=== PATIENT | female | born 1990 | race Caucasian/White ===

== ENCOUNTER 2019-07-22 05:12 | Inpatient (IN) ==
--- NOTE | 2019-07-22 05:26 | Emergency Department Note ---
History of Present Illness General Chief complaint: Illness Stated complaint: PNEUMONIA DIAGNOSED BY URGENT CARE History of Present Illness Maximum Pain Intensity: 3 This 29-year-old presents to the ER complaining of fever, chest congestion and body aches Location: Chest Quality: Feverish Severity: Moderate Duration: 3 days Timing: Started 3 days ago Context: Symptoms persisted and patient came in Modifying factors: better with Tylenol Motrin; worse with activity Patient went to urgent care and was given doxycycline for possible pneumonia. No x-ray was done. Patient denies abdominal pain, headache, neck stiffness, sore throat, earache. She does have some chest congestion and cough. Patient states she has chest discomfort with the cough. No exertional chest pain. No travel. No sick contacts. Home Medications Home Medications Medication Instructions Recorded Confirmed Type Control Pills 1 tab PO DAILY 07/22/19 07/22/19 History doxycycline hyclate 100 mg PO BID 07/22/19 07/22/19 History Allergies Allergy/AdvReac Type Severity Reaction Status Date / Time Cephalosporins Allergy Intermediate throat and Verified 07/22/19 05:46 face swelling azithromycin Allergy Mild Rash Verified 07/22/19 05:46 Past Med/Surg History Medical History No significant past medical history (Chronic) Surgical History H/O knee surgery (Chronic) Family History Other No significant family history Social History Preferred Language: Arabic Communication Ability: Effective Beliefs That Will Affect Care: None Current Living Situation: Spouse Current Living Situation Comment: Other Information That Helps Us Care for You: No Feels Safe at Home: Yes Safety Concerns: Feels Safe At This Time Smoking Status: Never smoker Hx Alcohol Use: Yes (1 glass wine once a month) Hx Substance Use: No Review of Systems All systems reviewed & are unremarkable except as noted in HPI & below Physical Exam Vital Signs Vital Signs - 24 hr 07/22/19 05:16 07/22/19 06:23 07/22/19 06:57 Temperature 37.2 C Temperature Source Oral Sepsis Recent Fever Within 48 Hours Yes Sepsis New/Unexplained Change in Mental Status No Sepsis Action Taken by Nursing No Action Required Pulse Rate 97 H Pulse Rate [Apical] 92 H Respiratory Rate 18 20 18 Respiratory Effort / Characteristics Non-Labored Spontaneous Respiratory Depth Normal Respiratory Pattern Blood Pressure 122/85 Blood Pressure [Left Arm] 117/79 123/89 Blood Pressure Mean 97 Blood Pressure Mean [Left Arm] 91 100 Blood Pressure Position Sitting Pulse Oximetry 97 100 100 Oxygen Delivery Method Room Air Room Air Room Air 07/22/19 07:00 07/22/19 08:00 07/22/19 08:01 Temperature Temperature Source Sepsis Recent Fever Within 48 Hours Sepsis New/Unexplained Change in Mental Status Sepsis Action Taken by Nursing Pulse Rate 84 85 Pulse Rate [Apical] Respiratory Rate 19 15 Respiratory Effort / Characteristics Non-Labored Spontaneous Respiratory Depth Normal Respiratory Pattern Regular Blood Pressure 125/92 113/77 Blood Pressure [Left Arm] Blood Pressure Mean 103 89 Blood Pressure Mean [Left Arm] Blood Pressure Position Pulse Oximetry 95 95 Oxygen Delivery Method Room Air Room Air Room Air VITALS: Vitals are noted on the nurse's note and reviewed by myself. Vital signs stable. GENERAL: Pleasant female, in no acute distress, nondiaphoretic, well-developed well-nourished. SKIN: The skin was without rashes, erythema, edema, or bruising. There is no tenting of the skin. Capillary reflex less than 2 seconds. HEAD: Normocephalic atraumatic. EARS: External auditory canals clear, tympanic membranes pearly grvaes without erythema or effusion bilaterally. EYES: Pupils equal round and reactive to light and accommodation. Conjunctivae without injection, sclerae without icterus. Extraocular movements intact. NOSE: Patent, turbinates without inflammation or discharge. No sinus tenderness. MOUTH: Mucous membranes moist. Pharynx without erythema or exudate. Uvula midline. Airway patent. Tongue does not deviate. NECK: Supple without nuchal rigidity. No lymphadenopathy. No thyromegaly. Cervical spine is nontender. No JVD. HEART: Regular rate and rhythm without murmurs gallops or rubs. LUNGS: Clear to auscultation bilaterally without wheezes, rales or rhonchi. No retractions or accessory muscle use. ABDOMEN: Positive bowel sounds x 4. Normal tympanic percussion. Soft, nontender, without masses or organomegaly. Faulkner sign negative. No guarding or rebound tenderness. No CVA tenderness MUSCULOSKELETAL: No muscle atrophy, erythema, or edema noted. NEURO: Patient was alert and oriented to person place and time. Normal sensation to light and sharp touch. No focal neurological deficits. Course Administered Medications Acetaminophen (Tylenol) 650 mg PO Q4H PRN PRN Reason: Pain or Fever Stop: 08/21/19 09:22 Last Admin: 07/22/19 15:00 Dose: 650 mg Documented by: [id number] Admin: 07/22/19 09:33 Dose: 650 mg Documented by: [id number] Sodium Chloride (Nss 1000ml) 1,000 mls @ 125 mls/hr IV .Q8H DANNIELLE Stop: 07/23/19 09:29 Last Admin: 07/23/19 01:18 Dose: 125 mls/hr Documented by: [id number] Infusion: 07/23/19 01:18 Dose: 125 mls/hr Documented by: [id number] Admin: 07/22/19 17:53 Dose: 125 mls/hr Documented by: [id number] Infusion: 07/22/19 17:33 Dose: 125 mls/hr Documented by: [id number] Admin: 07/22/19 09:33 Dose: 125 mls/hr Documented by: [id number] Ibuprofen (Motrin) 800 mg PO TID PRN PRN Reason: pain/fever/headache Stop: 08/21/19 11:52 Last Admin: 07/22/19 20:05 Dose: 800 mg Documented by: [id number] Ioversol (Optiray 320 125ml) 86 ml IV ONCE PRN PRN Reason: Interaction Checking Stop: 07/26/19 17:47 Last Admin: 07/22/19 17:48 Dose: 86 ml Documented by: [id number] Discontinued Medications Al Hydrox/Mg Hydrox/Simethicone () Confirm Administered Dose 1 dose PO .STK-MED ONE Stop: 07/22/19 06:01 Last Admin: 07/22/19 06:03 Dose: 1 dose Documented by: [id number] Al Hydrox/Mg Hydrox/Simethicone () 1 dose PO ONE ONE Stop: 07/22/19 06:15 Last Admin: 07/22/19 06:15 Dose: Not Given Documented by: [id number] Sodium Chloride (Nss 1000ml) 1,000 mls @ 999 mls/hr IV .Q1H1M ONE Stop: 07/22/19 06:32 Last Infusion: 07/22/19 06:59 Dose: 0 mls/hr Documented by: [id number] Admin: 07/22/19 05:58 Dose: 999 mls/hr Documented by: [id number] Ketorolac Tromethamine (Toradol) 10 mg IV NOW STA Stop: 07/22/19 05:33 Last Admin: 07/22/19 05:58 Dose: 10 mg Documented by: [id number] Ondansetron HCl (Zofran) 4 mg IV NOW STA Stop: 07/22/19 08:55 Last Admin: 07/22/19 08:57 Dose: 4 mg Documented by: [id number] Potassium Chloride (Klor-Con M10) 40 meq PO NOW STA Stop: 07/22/19 06:35 Last Admin: 07/22/19 06:38 Dose: 40 meq Documented by: [id number] Potassium Chloride (Klor-Con M20) 40 meq PO Q6H DANNIELLE Stop: 07/22/19 14:16 Last Admin: 07/22/19 09:46 Dose: Not Given Documented by: [id number] Potassium Chloride (Klor-Con M20) 40 meq PO Q6H DANNIELLE Stop: 07/22/19 16:01 Last Admin: 07/22/19 16:10 Dose: 40 meq Documented by: [id number] Admin: 07/22/19 11:45 Dose: 40 meq Documented by: [id number] Medical Decision Making Medical Records Attestation: I reviewed the patient's medical records. Home Medications Current Medication List: was personally reviewed by me Laboratory Data Attestation: I reviewed the patient's lab results. Result diagrams: 07/22/19 05:33 07/22/19 05:33 Lab Results 07/22/19 07/22/19 07/22/19 Range/Units 05:29 05:32 05:33 WBC 4.01 L (4.8-10.8) K/uL RBC 4.09 L (4.2-5.4) M/uL Hgb 12.2 (12.0-16.0) g/dL Hct 34.9 L (37-47) % MCV 85.3 (80-100) fL MCH 29.8 (25-34) pg MCHC 35.0 (32-36) g/dL RDW Std Deviation 39.6 (36.4-46.3) fL RDW Coeff of [place] 12.6 (11.5-14.5) % Plt Count 112 L (130-400) K/uL MPV 11.8 H (7.4-10.4) fL Immature Gran % (Auto) 0.2 % Neut % (Auto) 57.0 % Lymph % (Auto) 35.9 % [place] % (Auto) 5.7 % Eos % (Auto) 0.0 % Baso % (Auto) 1.2 % Immature Gran # (Auto) 0.01 (0.00-0.02) K/uL Neut # (Auto) 2.28 (1.4-6.5) K/uL Lymph # (Auto) 1.44 (1.2-3.4) K/uL [place] # (Auto) 0.23 (0.11-0.59) K/uL Eos # (Auto) 0.00 (0-0.5) K/uL Baso # (Auto) 0.05 (0-0.2) K/uL Neutrophils % (Manual) 70.4 % Lymphocytes % (Manual) 13.0 % Reactive Lymphs % (Man) 14.8 % Monocytes % (Manual) 0.9 % Basophils % (Manual) 0.9 % Neutrophils # (Manual) 2.82 (1.4-6.5) K/uL Total Absolute Neuts 2.82 (1.4-6.5) K/uL Lymphocytes # (Manual) 0.52 L (1.2-3.4) K/uL Reactive Lymphs # 0.59 K/uL Total Abs Lymphocytes 1.11 L (1.2-3.4) K/uL Monocytes # (Manual) 0.04 L (0.11-0.59) K/uL Basophils # (Manual) 0.04 (0-0.2) K/uL RBC Morphology Unremarkable Sodium (136-145) mmol/L Potassium (3.5-5.1) mmol/L Chloride (98-107) mmol/L Carbon Dioxide (21-32) mmol/L Anion Gap (3-11) BUN (7-18) mg/dl Creatinine (0.6-1.2) mg/dl Est Cr Clr Drug Dosing ml/min Est GFR ( Amer) Est GFR (Non-Af Amer) BUN/Creatinine Ratio (10-20) Glucose (70-99) mg/dl Calcium (8.5-10.1) mg/dl Magnesium (1.8-2.4) mg/dl Total Bilirubin (0.2-1) mg/dl AST (15-37) U/L ALT (12-78) U/L Alkaline Phosphatase (45-117) U/L POC Troponin I (0-0.045) ng/ml Troponin I (0-0.045) ng/ml Total Protein (6.4-8.2) gm/dl Albumin (3.4-5.0) gm/dl Globulin (2.5-4.0) gm/dl Albumin/Globulin Ratio (0.9-2) Urine Color Urine Appearance (Clear) Urine pH (4.5-7.5) Ur Specific [place] (1.000-1.030) Urine Protein (Negative) Urine Glucose (UA) (Negative) Urine Ketones (Negative) Urine Blood (Negative) Urine Nitrite (Negative) Urine Bilirubin (Negative) Urine Urobilinogen (Negative) Ur Leukocyte Esterase (Negative) Urine RBC (0-4) /hpf Urine WBC (0-5) /hpf Ur Epithelial Cells (0-5) /lpf Amorphous Sediment (None Prsent) Urine Bacteria (Negative) Urine Mucus (None Prsent) POC Ur Test (NEG) Anaplasma Smear See Comment Monoscreen Negative (Negative) Influenza Type A Ag Neg for Influ A (Neg) Influenza Type B Ag Neg for Influ B (Neg) 07/22/19 07/22/19 07/22/19 Range/Units 05:33 05:33 06:11 WBC (4.8-10.8) K/uL RBC (4.2-5.4) M/uL Hgb (12.0-16.0) g/dL Hct (37-47) % MCV (80-100) fL MCH (25-34) pg MCHC (32-36) g/dL RDW Std Deviation (36.4-46.3) fL RDW Coeff of [place]ult[place] (11.5-14.5) % Plt Count (130-400) K/uL MPV (7.4-10.4) fL Immature Gran % (Auto) % Neut % (Auto) % Lymph % (Auto) % [place] % (Auto) % Eos % (Auto) % Baso % (Auto) % Immature Gran # (Auto) (0.00-0.02) K/uL Neut # (Auto) (1.4-6.5) K/uL Lymph # (Auto) (1.2-3.4) K/uL [place] # (Auto) (0.11-0.59) K/uL Eos # (Auto) (0-0.5) K/uL Baso # (Auto) (0-0.2) K/uL Neutrophils % (Manual) % Lymphocytes % (Manual) % Reactive Lymphs % (Man) % Monocytes % (Manual) % Basophils % (Manual) % Neutrophils # (Manual) (1.4-6.5) K/uL Total Absolute Neuts (1.4-6.5) K/uL Lymphocytes # (Manual) (1.2-3.4) K/uL Reactive Lymphs # K/uL Total Abs Lymphocytes (1.2-3.4) K/uL Monocytes # (Manual) (0.11-0.59) K/uL Basophils # (Manual) (0-0.2) K/uL RBC Morphology Sodium 139 (136-145) mmol/L Potassium 3.0 L (3.5-5.1) mmol/L Chloride 106 (98-107) mmol/L Carbon Dioxide 26 (21-32) mmol/L Anion Gap 7.0 (3-11) BUN 5 L (7-18) mg/dl Creatinine 0.70 (0.6-1.2) mg/dl Est Cr Clr Drug Dosing 103.3 ml/min Est GFR ( Amer) 133.8 Est GFR (Non-Af Amer) 115.5 BUN/Creatinine Ratio 7.0 L (10-20) Glucose 93 (70-99) mg/dl Calcium 8.4 L (8.5-10.1) mg/dl Magnesium 1.9 (1.8-2.4) mg/dl Total Bilirubin 0.6 (0.2-1) mg/dl AST 46 H (15-37) U/L ALT 40 (12-78) U/L Alkaline Phosphatase 112 (45-117) U/L POC Troponin I 0.06 H (0-0.045) ng/ml Troponin I 0.061 H* (0-0.045) ng/ml Total Protein 7.4 (6.4-8.2) gm/dl Albumin 3.2 L (3.4-5.0) gm/dl Globulin 4.2 H (2.5-4.0) gm/dl Albumin/Globulin Ratio 0.8 L (0.9-2) Urine Color Urine Appearance (Clear) Urine pH (4.5-7.5) Ur Specific [place] (1.000-1.030) Urine Protein (Negative) Urine Glucose (UA) (Negative) Urine Ketones (Negative) Urine Blood (Negative) Urine Nitrite (Negative) Urine Bilirubin (Negative) Urine Urobilinogen (Negative) Ur Leukocyte Esterase (Negative) Urine RBC (0-4) /hpf Urine WBC (0-5) /hpf Ur Epithelial Cells (0-5) /lpf Amorphous Sediment (None Prsent) Urine Bacteria (Negative) Urine Mucus (None Prsent) POC Ur Test (NEG) Anaplasma Smear Monoscreen (Negative) Influenza Type A Ag (Neg) Influenza Type B Ag (Neg) 07/22/19 07/22/19 Range/Units 06:46 06:46 WBC (4.8-10.8) K/uL RBC (4.2-5.4) M/uL Hgb (12.0-16.0) g/dL Hct (37-47) % MCV (80-100) fL MCH (25-34) pg MCHC (32-36) g/dL RDW Std Deviation (36.4-46.3) fL RDW Coeff of [place]ultana (11.5-14.5) % Plt Count (130-400) K/uL MPV (7.4-10.4) fL Immature Gran % (Auto) % Neut % (Auto) % Lymph % (Auto) % [place] % (Auto) % Eos % (Auto) % Baso % (Auto) % Immature Gran # (Auto) (0.00-0.02) K/uL Neut # (Auto) (1.4-6.5) K/uL Lymph # (Auto) (1.2-3.4) K/uL [place] # (Auto) (0.11-0.59) K/uL Eos # (Auto) (0-0.5) K/uL Baso # (Auto) (0-0.2) K/uL Neutrophils % (Manual) % Lymphocytes % (Manual) % Reactive Lymphs % (Man) % Monocytes % (Manual) % Basophils % (Manual) % Neutrophils # (Manual) (1.4-6.5) K/uL Total Absolute Neuts (1.4-6.5) K/uL Lymphocytes # (Manual) (1.2-3.4) K/uL Reactive Lymphs # K/uL Total Abs Lymphocytes (1.2-3.4) K/uL Monocytes # (Manual) (0.11-0.59) K/uL Basophils # (Manual) (0-0.2) K/uL RBC Morphology Sodium (136-145) mmol/L Potassium (3.5-5.1) mmol/L Chloride (98-107) mmol/L Carbon Dioxide (21-32) mmol/L Anion Gap (3-11) BUN (7-18) mg/dl Creatinine (0.6-1.2) mg/dl Est Cr Clr Drug Dosing ml/min Est GFR ( Amer) Est GFR (Non-Af Amer) BUN/Creatinine Ratio (10-20) Glucose (70-99) mg/dl Calcium (8.5-10.1) mg/dl Magnesium (1.8-2.4) mg/dl Total Bilirubin (0.2-1) mg/dl AST (15-37) U/L ALT (12-78) U/L Alkaline Phosphatase (45-117) U/L POC Troponin I (0-0.045) ng/ml Troponin I (0-0.045) ng/ml Total Protein (6.4-8.2) gm/dl Albumin (3.4-5.0) gm/dl Globulin (2.5-4.0) gm/dl Albumin/Globulin Ratio (0.9-2) Urine Color Dark Yellow Urine Appearance Clear (Clear) Urine pH 6.5 (4.5-7.5) Ur Specific [place] 1.021 (1.000-1.030) Urine Protein 1+ H (Negative) Urine Glucose (UA) Negative (Negative) Urine Ketones 1+ H (Negative) Urine Blood 3+ H (Negative) Urine Nitrite Negative (Negative) Urine Bilirubin Negative (Negative) Urine Urobilinogen Negative (Negative) Ur Leukocyte Esterase 1+ H (Negative) Urine RBC 0-4 (0-4) /hpf Urine WBC 0-5 (0-5) /hpf Ur Epithelial Cells >30 H (0-5) /lpf Amorphous Sediment Present A (None Prsent) Urine Bacteria Negative (Negative) Urine Mucus Present A (None Prsent) POC Ur Test NEG (NEG) Anaplasma Smear Monoscreen (Negative) Influenza Type A Ag (Neg) Influenza Type B Ag (Neg) Imaging Data Attestation: I personally reviewed and interpreted this imaging study as follows: MDM Narrative Prior records/ancillary studies reviewed. Triage Nursing notes reviewed. The patient's history was concerning for fever. Differential diagnosis: Etiologies such as viral syndrome, otitis, pharyngitis, pneumonia, influenza, meningitis, urinary tract infection, sepsis, bacteremia, as well as others were entertained. Physical examination: As above ER treatment provided: IV fluids, Toradol, GI cocktail On reassessment the patient felt better. Diagnostics interpreted by me: ECG: Normal sinus, normal intervals, no acute ST-T wave changes. Impression normal sinus rhythm interpreted by myself Ordered for chest pain I think arrhythmia is unlikely. EKG shows normal sinus rhythm with no interval abnormalities such as QT prolongation or WPW. There are no findings to suggest Brugada syndrome. Cardiac monitoring in the emergency department reveals no tachycardic or bradycardic dysrhythmia. Hypertrophic cardiomyopathy was considered but there are no clear historical elements pointing toward this. EKG is not suggestive. The QRS voltage is not extremely large and there are no suggestive Q waves. The labs revealed negative flu. Blood cultures pending. Elevated troponin. Hypokalemia this is replaced orally No leukocytosis Imaging studies: Chest x-ray with no acute consolidation, pneumothorax or free air per my interpretation Consultation: Medicine was consulted and I spoke to . Case was reviewed. The [facility] team will evaluate the patient. This appears to be consistent with flulike illness with a positive troponin. EKG was normal sinus. No signs of pericarditis on EKG. Patient had no pneumonia. She was neurovascularly and neurologically intact. No signs of meningitis. By the evaluation outlined above emergent etiologies such as otitis, pharyngitis, pneumonia, meningitis, urinary tract infection, sepsis, bacteremia, as well as others were deemed relatively unlikely. Patient felt much better after the GI cocktail. Most likely she has some esophageal irritation from the doxycycline. She was advised to stop this as there was no pneumonia The pt informed about the findings as listed above. All questions were answered and pleased with the treatment. The chart was completed utilizing [employer] Speech voice recognition software. Grammatical errors, random word insertions, pronoun errors, and incomplete sentences are an occassional consequence of this system due to software limitations, ambient noise, and hardware issues. Any formal questions or concerns about the content, text, or information contained within the body of this dictation should be directly addressed to the physician resident programs assistant for clarification. Impression & Plan Bronchitis, Elevated troponin, Acute hypokalemia Discharge Plan Visit Data *Final* Discharge Date/Time: 07/22/19 08:59 Chief Complaint: Illness Stated Complaint: PNEUMONIA DIAGNOSED BY URGENT CARE ED Provider: Mary [facility] Pratt ED Midlevel Provider: Carmen Downs Discharge Problem: Bronchitis, Elevated troponin, Acute hypokalemia Patient Disposition: Admitted As Inpatient Condition: Good Discharge Instructions Interventions: ED Discharge Assessment Last Done: 07/22/19 08:59
[2019-07-22] MEDS ORDERED: SODIUM CHLORIDE 0.9% 1000ML 1,000 ML IV ONE (05:32)
[2019-07-22] MEDS ORDERED: KETOROLAC TROMETHAMINE 15 MG/ML VIAL IV STA (05:32)
[2019-07-22] MEDS ORDERED: GI COCKTAIL ED USE PO ONE ×2 (06:00→06:14)
[2019-07-22 06:16] LABS: Basophils # (auto) 0.05 K/uL (0-0.2); Basophils % (auto) 1.2 %; Hematocrit (blood only) 34.9 % (37-47); Hemoglobin 12.2 g/dL (12.0-16.0); Immature Granulocytes # (auto) 0.01 K/uL (0.00-0.02); Immature Granulocytes % (auto) 0.2 %; Lymphocytes # (auto) 1.44 K/uL (1.2-3.4); Lymphocytes % (auto) 35.9 %; Mean Corpuscular Hemoglobin 29.8 pg (25-34); Mean Corpuscular Volume 85.3 fL (80-100); Mean Platelet Volume 11.8 fL (7.4-10.4); Monocytes # (auto) 0.23 K/uL (0.11-0.59); Monocytes % (auto) 5.7 %; Neutrophils # (auto) 2.28 K/uL (1.4-6.5); Platelet Count 112 K/uL (130-400); RDW Coefficient of Variation 12.6 % (11.5-14.5); RDW Standard Deviation 39.6 fL (36.4-46.3); Red Blood Count 4.09 M/uL (4.2-5.4); White Blood Count 4.01 K/uL (4.8-10.8)
[2019-07-22 06:33] LABS: Albumin Level 3.2 gm/dl (3.4-5.0); Calcium 8.4 mg/dl (8.5-10.1); Creatinine Clr Calc Pharmacy 103.3 ml/min; Est GFR (African American) 133.8; Est GFR (Non-African American) 115.5
[2019-07-22] MEDS ORDERED: POTASSIUM CHLORIDE 10 MEQ TABCR PO STA (06:34)
[2019-07-22 06:35] LABS: Albumin Globulin Ratio 0.8 (0.9-2); Bilirubin,Total 0.6 mg/dl (0.2-1); Globulin 4.2 gm/dl (2.5-4.0); Total Protein 7.4 gm/dl (6.4-8.2)
[2019-07-22 06:48] LABS: ALC (manual) 1.11 K/uL (1.2-3.4); ANC (manual) 2.82 K/uL (1.4-6.5); Basophils # (manual) 0.04 K/uL (0-0.2); Basophils % (manual) 0.9 %; Lymphocytes # (manual) 0.52 K/uL (1.2-3.4); Monocytes # (manual) 0.04 K/uL (0.11-0.59); Monocytes % (manual) 0.9 %; Neutrophils # (manual) 2.82 K/uL (1.4-6.5); Neutrophils % (manual) 70.4 %; RBC Morphology Unremarkable; Reactive Lymphocytes # (manual) 0.59 K/uL; Reactive Lymphocytes % (manual) 14.8 %
[2019-07-22 07:12] LABS: Appearance Urine Clear (Clear); Bilirubin Urine Negative (Negative); Blood Urine 3+ (Negative); Color Urine Dark Yellow; Glucose Urine UA Negative (Negative); Ketones Urine 1+ (Negative); Leukocyte Esterase Urine 1+ (Negative); Nitrite Urine Negative (Negative); Protein Urine 1+ (Negative); Specific Gravity Urine 1.021 (1.000-1.030); Urobilinogen Urine Negative (Negative); pH Urine 6.5 (4.5-7.5)
--- NOTE | 2019-07-22 07:29 | XRay Report ---
XR chest 2V routine HISTORY: cough/fever COMPARISON: None. FINDINGS: The lungs are clear. Cardiac silhouette is normal in size. No pleural effusions. No pneumot horax. IMPRESSION: No acute process. Electronically signed by: Jeyson Soto M.D. 07/22/2019 7:27 AM
[2019-07-22 07:56] LABS: Amorphous Sediment Urine Present (None Prsent); Bacteria Urine Negative (Negative); Epithelial Cell Urine >30 /lpf (0-5); Mucus Urine Present (None Prsent); RBC Urine 0-4 /hpf (0-4); WBC Urine 0-5 /hpf (0-5)
[2019-07-22 08:14] LABS: Troponin I 0.061 ng/ml (0-0.045)
[2019-07-22] MEDS ORDERED: POTASSIUM CHLORIDE 20 MEQ TABCR PO SCH (08:15)
--- NOTE | 2019-07-22 08:43 | History & Physical Report ---
Date of Service July 22, 2019 Assessment & Plan (1) Fever: Presented with fever 103F for 4 days with myalgias, fatigue, chest tightness. Was started on doxycycline on 07/20/19 for possible respiratory infection. WBC: 4.0, H/H: 12/34, Plt: 112, AST: 46 with remaining LFTs WNL DDX: viral etiology, mono, anaplasmosis Negative influenza swab Monospot pending anaplasmosis smear IVF Hold antibiotics at this time pending peripheral smear Monitor CBC (2) Elevated troponin: Presented with chest tightness worse with exertion and improved with sitting up. also with fever In ER no hypoxia or tachycardia. EKG no acute ST changes. No LE edema, hemop tysis, recent immobilization/surgery DDX: viral syndrome, pericarditis. Troponin: 0.06 Trend troponin Echo Repeat EKG in am (3) Acute hypokalemia: K: 3.0 Probable secondary to poor oral intake, vomiting In ER given KCl 40meq po Replace and monitor electrolytes DVT Prophylaxis -[facility] Does not currently have PCP for routine care Pt was seen and care coordinated with Dr Fernandes. See addendum History of Present Illness Chief Complaint: fever Primary Care Provider: NO PCP Pt is 29 y/o F without significant PMH presented to ER with c/o fever x 4 days. Reports onset of fatigue, myalgias, decreased appetite, chest tightness and fever of 103. Has been taking Tylenol and Ibuprofen for fever which helps initially and then fever returns. Pt states chest tightness and denies SOB. Chest tightness worse with exertion and improved some with sitting up. Denies any cough, rhinorrhea, sore throat, swollen glands, otalgia. Also c/o intermittent BUI. Reports history migraines in past. States 07/20/19 was seen at urgent care and started on doxycycline BID for possible lower respiratory tract infection. After starting doxycycline pt reports nausea and reports vomiting after taking Doxycycline. Denies abdominal pain. Denies any improvement of symptoms since starting antibiotic. Denies diarrhea, constipation, dizziness, syncope, vision changes, neck pain, neck stiffness, orthopnea, palpitations, hemoptysis, paresthesias, weakness, extremity weakness, extremity edema, rashes, urinary symptoms. Denies recent travel, recent tick bite, ill contacts. Moved to [place] from in April 2019, hasn't established with PCP yet. Allergies Allergy/AdvReac Type Severity Reaction Status Date / Time Cephalosporins Allergy Intermediate throat and Verified 07/22/19 05:46 face swelling azithromycin Allergy Mild Rash Verified 07/22/19 05:46 Home Medications Home Medications Medication Instructions Recorded Confirmed Type Control Pills 1 tab PO DAILY 07/22/19 07/22/19 History doxycycline hyclate 100 mg PO BID 07/22/19 07/22/19 History Past Med/Surg History Medical History No significant past medical history (Chronic) Surgical History H/O knee surgery (Chronic) Family History Other No significant family history Social History Preferred Language: Amharic Communication Ability: Effective Beliefs That Will Affect Care: None Current Living Situation: Spouse Current Living Situation Comment: Other Information That Helps Us Care for You: No Feels Safe at Home: Yes Safety Concerns: Feels Safe At This Time Smoking Status: Never smoker Hx Alcohol Use: Yes (1 glass wine once a month) Hx Substance Use: No Review of Systems Review of Systems: All systems reviewed & are unremarkable except as noted in HPI & below Physical Exam Physical Exam: General: no distress, non-toxic appearance, WDWN Head: normocephalic, atraumatic Eyes: PERRL, EOM's intact, conjunctiva non-injected, anicteric ENT: normal inspection external ears, nose, mucous membranes moist, no pharyngeal erythema or edema or exudate Neck: supple, trachea midline, non-tender, ROM intact, no rigidity Lungs: clear, no respiratory distress, no wheezing/rhonchi/rales; chest wall without tenderness CV: RRR, no murmur, no pretibial edema Abd: normal BS, soft, non-tender Ext: no cyanosis, no calf tenderness Neuro: A&O x 3, no focal deficits noted, normal affect Skin: warm, dry Results & Data Vital Signs (Past 12 Hours) Vital Signs Temp Pulse Pulse Resp BP BP Pulse Ox 07/22/19 08:00 85 15 113/77 95 07/22/19 07:00 84 19 125/92 95 07/22/19 06:57 18 123/89 100 07/22/19 06:23 92 H 20 117/79 100 07/22/19 05:16 37.2 C 97 H 18 122/85 97 Laboratory Results Short CBC 07/22/19 Range/Units 05:33 WBC 4.01 L (4.8-10.8) K/uL Hgb 12.2 (12.0-16.0) g/dL Hct 34.9 L (37-47) % Plt Count 112 L (130-400) K/uL BMP 07/22/19 05:33 Sodium 139 Potassium 3.0 L Chloride 106 Carbon Dioxide 26 BUN 5 L Creatinine 0.70 Glucose 93 Calcium 8.4 L Cardiac Enzymes 07/22/19 Range/Units 05:33 Troponin I 0.061 H* (0-0.045) ng/ml Liver Function 07/22/19 Range/Units 05:33 Total Bilirubin 0.6 (0.2-1) mg/dl AST 46 H (15-37) U/L ALT 40 (12-78) U/L Alkaline Phosphatase 112 (45-117) U/L Albumin 3.2 L (3.4-5.0) gm/dl Urine 07/22/19 Range/Units 06:46 Urine Color Dark Yellow Urine Appearance Clear (Clear) Urine pH 6.5 (4.5-7.5) Ur Specific [place] 1.021 (1.000-1.030) Urine Protein 1+ H (Negative) Urine Glucose (UA) Negative (Negative) Diagnostic Findings CXR: IMPRESSION: No acute process. ECG Rate (beats per minute): 93 Rhythm: normal sinus Code Status & VTE Plan VTE Prophylaxis Plan VTE Prophylaxis will be ordered: Yes Supervising Physician Co-Signing Physician Notes I have seen and examined the patient and have discussed the case with the provider above. I agree with the assessment and plan as stated with the following exceptions. 29 yo F with 4 days of high fevers. She recently [place] local [place] one day and came down with a headache the next day, followed by a high fever just after. She has two toddlers who have not been ill. She denies any respiratory symptoms or other recent infections or other travel. She has a h/o migraines and upon my arrival to her room, she reports a migraine and neck pain. She had normal cervical ROM and no neck stiffness on exam without TTP of the neck musculature. Exam also revealed generalized malaise and light avoidance as she preferred the dark room. Heart exam revealed S1/2 with a regular rate and rhythm and no murmurs, gallops or rubs. Lungs were clear to auscultation. Head was NC/AT, and conjunctivae were non-injected with anicteric sclerae. TM were normal and there was no maxillary or frontal sinus TTP. Oropharynx was clear and there was no submandibular or cervical LAD. Abdomen was soft and non-tender without distension. Workup was unremarkable aside from a mildly bumped troponin to 0.06. She was admitted and troponin was repeated and negative. Echo was performed and negative. She had some acetaminophen but has not spiked another temperature. An LP was performed and negative for infection. Her chest pain was somewhat improved with the IVF but later in the afternoon it persisted, and she informed me that she just switched her OCPs in March from the [place] to [place]. She mentioned she has had some vaginal spotting, but denies any burning, rash, pelvic discomfort, discharge or other concerns for pelvic infection. With the persistent chest pain without a clear etiology and her OCP use with fever, lacking other infectious symptoms and a negative LP, I will rule out PE with a chest CT at this time. Pt denies any calf swelling or pain in her legs that might be consistent with a DVT. Will follow results. DO Dom
[2019-07-22] MEDS ORDERED: ONDANSETRON INJ 2 MG/ML 2 ML VIAL IV STA (08:54)
[2019-07-22] MEDS ORDERED: ONDANSETRON INJ 2 MG/ML 2 ML VIAL IV PRN (09:23)
[2019-07-22] MEDS: ACETAMINOPHEN 325 MG TAB PO PRN ×2 (09:33→15:00)
[2019-07-22] MEDS: SODIUM CHLORIDE 0.9% 1000ML 1,000 ML IV SCH ×2 (09:33→17:53)
[2019-07-22] MEDS: POTASSIUM CHLORIDE 20 MEQ TABCR PO SCH ×2 (11:45→16:10)
--- NOTE | 2019-07-22 13:52 | Fluoroscopy Report ---
FLUOROSCOPIC GUIDED LUMBAR PUNCTURE CLINICAL HISTORY: Fever. Headache. Neck stiffness. PROCEDURE: The risks, benefits, and alternatives to the procedure is discussed with the patient who v oiced understanding. Written informed consent was obtained. The patient was placed prone on the fluor oscopy table. The lower back was prepped and draped in the usual sterile fashion. 1% lidocaine was us ed for local anesthesia. A 22-gauge spinal needle was inserted into the L4-L5 interlaminar space, and approximately 10 cc of clear colorless cerebrospinal fluid was removed. A single fluoroscopic image was saved. The patient tolerated the procedure well. There were no immediate complications. The patie nt was then returned to the medical floor for further observation. Fluoroscopy time: 0.5 minutes IMPRESSION: Fluoroscopic guided lumbar puncture with removal of approximately 10 cc of cerebrospinal fluid. There were no immediate complications. Electronically signed by: Bahman Mai M.D. 07/22/2019 1:50 PM
[2019-07-22 13:54] LABS: Total Protein CSF 47.4 mg/dl (15-45)
[2019-07-22 14:24] LABS: Appearance CSF Clear; CSF Count Tube # 3; CSF Xanthrochromic No xanthochromia; Color CSF Colorless; Red Blood Cell CSF (A) 0 /uL (0-); Red Blood Cell CSF (B) 0 /uL (0-); White Blood Cell CSF (A) 2 /uL (0-5); White Blood Cell CSF (B) 2 /uL (0-5)
[2019-07-22] MEDS ORDERED: OPTIRAY 320 125ml IV PRN (17:48)
--- NOTE | 2019-07-22 17:55 | CT Scan Report ---
CT angio chest PE protocol CLINICAL HISTORY: 29 years-old Female presenting with cough and fever, clinical concern for pulmonary embolus. TECHNIQUE: Multidetector CT angiography of the chest was performed after administration of intravenou s contrast. 3-D volumetric and/or maximum intensity projection (MIP) images were subsequently reconst ructed for review. IV contrast: 86 mL of Optiray 320. One or more dose lowering techniques were used consistent with the principles of ALARA (as low as reasonably achievable), including automatic exposu re control, mA or kV adjustment to individual patient size, and/or use of iterative reconstruction. COMPARISON: Chest x-ray performed earlier today. CT DOSE (mGy.cm): The estimated cumulative dose is 324.82 mGy.cm. FINDINGS: Leadlighter topogram: Unremarkable. Pulmonary vasculature: The study is adequate for assessment of the pulmonary vascular tree. No filling defect within the pul monary arteries to suggest embolus. Main pulmonary artery is not enlarged. No flattening of the inter ventricular septum. No intracardiac filling defect. No reflux of contrast into the hepatic veins. Remaining chest: Soft tissues: Normal thyroid and thoracic inlet. No axillary, supraclavicular, mediastinal, or hilar lymphadenopathy. Normal aorta. Top normal heart size. No pericardial or pleural effusion. Upper abdom en normal. Lungs and airways: No pneumothorax. Central airways patent. Mild bronchial wall thickening suggested diffusely. Pulmonary arteries are not significantly enlarged relative to adjacent bronchi. No interlo bular septal thickening. Minimal dependent changes likely atelectasis. No other focal nodule or infil trate. Musculoskeletal: Normal osseous structures. IMPRESSION: 1. No evidence of pulmonary embolus. 2. Mild diffuse bronchial wall thickening suggested. This could indicate bronchitis. 3. No focal infiltrate to suggest pneumonia or other evidence of acute intrathoracic pathology. Electronically signed by: Ezra Yuan M.D. 07/22/2019 5:54 PM
[2019-07-22 19:01] LABS: Troponin I 0.047 ng/ml (0-0.045)
[2019-07-22] MEDS: IBUPROFEN 800 MG TAB PO PRN (20:05)
[2019-07-23] MEDS: SODIUM CHLORIDE 0.9% 1000ML 1,000 ML IV SCH (01:18)
[2019-07-23 07:03] LABS: Hematocrit (blood only) 33.5 % (37-47); Hemoglobin 11.3 g/dL (12.0-16.0); Mean Corpuscular Hemoglobin 29.2 pg (25-34); Mean Corpuscular Hgb Conc 33.7 g/dL (32-36); Mean Corpuscular Volume 86.6 fL (80-100); Mean Platelet Volume 11.4 fL (7.4-10.4); Platelet Count 108 K/uL (130-400); RDW Standard Deviation 41.2 fL (36.4-46.3); Red Blood Count 3.87 M/uL (4.2-5.4); White Blood Count 3.72 K/uL (4.8-10.8)
[2019-07-23 07:50] LABS: BUN Creatinine Ratio 8.4 (10-20); Calcium 7.9 mg/dl (8.5-10.1); Creatinine Clr Calc Pharmacy 116.1 ml/min; Est GFR (African American) 138.5; Est GFR (Non-African American) 119.5; Potassium 4.2 mmol/L (3.5-5.1)
[2019-07-23] MEDS: ACETAMINOPHEN 325 MG TAB PO PRN (08:12)
[2019-07-23] MEDS ORDERED: ACETAMINOPHEN 325 MG TAB PO PRN (08:45)
[2019-07-23] MEDS: IBUPROFEN 800 MG TAB PO PRN (08:47)
[2019-07-23] MEDS ORDERED: predniSONE 20 MG TAB PO STA (08:49)
--- NOTE | 2019-07-23 08:54 | Hospitalist Progress Note ---
Date of Service July 23, 2019 Assessment & Plan (1) Fever: -initial presentation to hospital on 07/22/19 with 4 days of high fevers with myalgias, fatigue, chest tightness -as per history She recently [place] local [place] one day and came down with a headache the next day, followed by a high fever just after. She has two toddlers who have not been ill. She denies any respiratory symptoms or other recent infections or other travel -patient was started in urgent care of doxycycline on 07/20/19 for possible respiratory infection which she took for 2 days -CTA scan 07/22/19: No evidence of pulmonary embolus. Mild diffuse bronchial wall thickening suggested which may indicate bronchitis. But there were No focal infiltrate to suggest pneumonia or other evidence of acute intrathoracic pathology. -Negative influenza swab -WBC have been normal on admission, no urinary tract infection -Monoscreen negative -history of migraines and reported migraine headache and neck pain on admission; Lumbar puncture on 07/22/19 with normal CSF -Anaplasmosis peripheral smear is negative -Enterovirus RNA pending -Tmax 39.3 on evening of 07/22/19; patient associates fever during night times -ESR and CRP elevated -BRANDI screening test have been sent -patient reported allergic reaction to a cephalosporin years ago when in high school but appeared to be able to cousins of cephalosporins antibiotics. will start Zosyn empirically. patient counseled to alert medical staff immediately if any allergic reaction. prn IV Benadryl ordered if there are acute allergy reaction -repeat blood culture ordered for 07/23/19 -monitor for fever -treat possible pericarditis versus myocarditis (2) Elevated troponin: possible pericarditis versus myocarditis -Presented with chest tightness worse with exertion and improved with sitting up. also with fever -troponins above baseline; echocardiogram with normal ejection fractions -continue ibuprofren as scheduled 600 mg q8 hours, started prednisone 20 mg daily -obtain cardiology consult (3) Acute hypokalemia: -serum potassium of 3 on admission; Probable secondary to poor oral intake, vomiting -has resolved with potassium repletion DVT Prophylaxis -SCDs, ecourage ambulation Subjective Tmax 39.3 on evening of 07/22/19; patient associates fever during night times; Patient seen and examined at the bedside. She has headache. not in acute distress. no vomiting today. no abdomen pain. no dysuria. no diarrhea. denies shortness of breath. breathing on room air. no acute chest pain but notes that chest pressure has been associated when fever started at home. reports that chest discomforts are better when laying down but exacerbates when sitting up or with ambulation. Physical Exam Constitutional: comfortable Eyes: EOM intact bilaterally ENMT: external ear and nose normal, oropharynx normal Neck: normal visual inspection Respiratory: normal respiratory effort, lungs clear to auscultation Cardiovascular: Rate/Rhythm: regular rate and regular rhythm Gastrointestinal (Abdomen): Inspection/Auscultation: abdomen normal to inspection Musculoskeletal: Head/Neck/Chest: normocephalic and head atraumatic Neurologic: CN's II-XI intact bilaterally Psychiatric: A+Ox3, euthymic affect Results & Data Vital Signs (Past 12 Hours) Vital Signs Temp Pulse Pulse Resp BP Pulse Ox 07/23/19 07:16 37.3 C 98 H 18 119/82 97 07/23/19 04:25 36.8 C 88 20 100/67 99 07/23/19 00:04 36.9 C 106 H 20 99/69 L 97 07/23/19 00:00 100 H 07/22/19 20:58 38.2 C H
[2019-07-23] MEDS ORDERED: DiphenhydrAMINE HCL 50 MG/ML VIAL IV PRN (09:08)
[2019-07-23] MEDS ORDERED: PIPERACILL/TAZOBAC CONSULT ACTIVE PRN (09:08)
[2019-07-23] MEDS: IBUPROFEN 600 MG TAB PO SCH ×3 (09:09→22:13)
[2019-07-23] MEDS ORDERED: PIPERACILLIN/TAZOBACTAM 3.375 GM in DEXTROSE 5% 100 ML IV ONE (10:00)
--- NOTE | 2019-07-23 10:26 | Infectious Disease Consult ---
Date of Consultation July 23, 2019 Assessment & Plan (1) Fever: 29-year-old previously healthy female with acute febrile illness associated with chest pain and elevated troponin, suggestive of myocarditis. Despite negative smear, certainly Anaplasma and Lyme disease are possibilities, and so I have restarted patient on IV doxycycline to see if she better tolerates. Would order Lyme serology if not already obtained. Will await final blood culture results. Discussed with Dr. Faye. Will follow. (2) Elevated troponin: History of Present Illness Reason for Consultation: Fevers x4 days, headache, ? etiology Attending Physician: Kenny Faye MD History of Present Illness 29-year-old female in prior good health was well until 4 to 5 days prior to admission when she had relatively acute onset of fever, chills, body aches, and severe chest pain with pleuritic component. She was seen in urgent care center and started on doxycycline, given 4 doses which she was very intolerant of persistence of fever and chest pain and eventually came to emergency department and was admitted for further management. She is found to have elevated troponin levels, along with mild thrombocytopenia, minimal liver enzyme elevation, negative blood cultures, and negative peripheral smear for inclusions consistent with Anaplasma. Has continued to spike fever and started empirically on Zosyn. Still with pleuritic type chest pain, currently 2 out of 10 in intensity. Chest x-ray shows no evidence of pneumonia, has had lumbar puncture which shows no evidence of STRATEGIC DEVELOPMENT MANAGER infection. Echocardiogram shows good cardiac function and no wall motion abnormality. No obvious pericardial effusion. Allergies Allergy/AdvReac Type Severity Reaction Status Date / Time Cephalosporins Allergy Intermediate throat and Verified 07/22/19 05:46 face swelling azithromycin Allergy Mild Rash Verified 07/22/19 05:46 Home Medications Home Medications Medication Instructions Recorded Confirmed Type Control Pills 1 tab PO DAILY 07/22/19 07/22/19 History doxycycline hyclate 100 mg PO BID 07/22/19 07/22/19 History Patient History Medical History No significant past medical history (Chronic) Surgical History H/O knee surgery (Chronic) Family History Other No significant family history Social History Preferred Language: Turkish Communication Ability: Effective Beliefs That Will Affect Care: None Current Living Situation: Spouse Current Living Situation Comment: Other Information That Helps Us Care for You: No Feels Safe at Home: Yes Safety Concerns: Feels Safe At This Time Smoking Status: Never smoker Hx Alcohol Use: Yes (1 glass wine once a month) Hx Substance Use: No Review of Systems Review of Systems: All systems reviewed & are unremarkable except as noted in HPI & below Physical Exam Constitutional: WD/WN, vitals as above comfortable; no acute distress Eyes: PERRL, conjunctivae normal, anicteric sclerae ENMT: external ear and nose normal, oropharynx normal Neck: trachea midline, no thyromegaly neck nontender Respiratory: normal respiratory effort, lungs clear to auscultation normal percussion; does not use accessory muscles Cardiovascular: Rate/Rhythm: regular rate and regular rhythm Heart Sounds: normal S1 and normal S2; no gallop, no murmur and no cardiac rub Vessels: normal peripheral pulses; no JVD Gastrointestinal (Abdomen): normal bowel sounds, soft, nontender, no hepatosplenomegaly Musculoskeletal: no cyanosis or clubbing, extremities motor strength 5/5 Spine: thoracic spine normal to inspection and lumbar spine normal to inspection; no cervical spinal tenderness Skin: no rashes, warm and dry normal turgor; no lesions Neurologic: patellar DTR's 2+ bilat, sensation intact no focal motor deficits Psychiatric: A+Ox3, euthymic affect Orientation: cooperative Lymphatic: no cervical or axillary lymphadenopathy no inguinal lymphadenopathy Results & Data Vital Signs (Past 12 Hours) Vital Signs Temp Pulse Pulse Resp BP Pulse Ox 07/23/19 07:16 37.3 C 98 H 18 119/82 97 07/23/19 04:25 36.8 C 88 20 100/67 99 07/23/19 00:04 36.9 C 106 H 20 99/69 L 97 07/23/19 00:00 100 H Laboratory Results Short CBC 07/23/19 Range/Units 06:47 WBC 3.72 L (4.8-10.8) K/uL Hgb 11.3 L (12.0-16.0) g/dL Hct 33.5 L (37-47) % Plt Count 108 L (130-400) K/uL BMP 07/23/19 06:47 Sodium 139 Potassium 4.2 D Chloride 108 H Carbon Dioxide 25 BUN 5 L Creatinine 0.63 Glucose 83 Calcium 7.9 L Cardiac Enzymes 07/22/19 07/22/19 Range/Units 11:55 18:09 Total Creatine Kinase 49 (26-192) U/L Troponin I 0.037 0.047 H* (0-0.045) ng/ml Diagnostic Findings Microbiology 07/22/19 05:33 Blood Aerobic Blood Culture - Preliminary No growth in Aerobic bottle after 24 hours. 07/22/19 05:33 Blood Anaerobic Blood Culture - Preliminary No growth in Anaerobic bottle after 24 hours. 07/22/19 05:33 Blood Aerobic Blood Culture - Preliminary No growth in Aerobic bottle after 24 hours. 07/22/19 05:33 Blood Anaerobic Blood Culture - Preliminary No growth in Anaerobic bottle after 24 hours. 07/22/19 13:20 Cerebral Spinal Fluid Gram Stain - Final 07/22/19 13:20 Cerebral Spinal Fluid Cryptococcal Antigen Test - Final cc: ~ CT angio chest PE protocol CLINICAL HISTORY: 29 years-old Female presenting with cough and fever, clinical concern for pulmonary embolus. TECHNIQUE: Multidetector CT angiography of the chest was performed after administration of intravenous contrast. 3-D volumetric and/or maximum intensity projection (MIP) images were subsequently reconstructed for review. IV contrast: 86 mL of Optiray 320. One or more dose lowering techniques were used consistent with the principles of ALARA (as low as reasonably achievable), including automatic exposure control, mA or kV adjustment to individual patient size, and/or use of iterative reconstruction. COMPARISON: Chest x-ray performed earlier today. CT DOSE (mGy.cm): The estimated cumulative dose is 324.82 mGy.cm. FINDINGS: Celery Cutter topogram: Unremarkable. Pulmonary vasculature: The study is adequate for assessment of the pulmonary vascular tree. No filling defect within the pulmonary arteries to suggest embolus. Main pulmonary artery is not enlarged. No flattening of the interventricular septum. No intracardiac filling defect. No reflux of contrast into the hepatic veins. Remaining chest: Soft tissues: Normal thyroid and thoracic inlet. No axillary, supraclavicular, mediastinal, or hilar lymphadenopathy. Normal aorta. Top normal heart size. No pericardial or pleural effusion. Upper abdomen normal. Lungs and airways: No pneumothorax. Central airways patent. Mild bronchial wall thickening suggested diffusely. Pulmonary arteries are not significantly enlarged relative to adjacent bronchi. No interlobular septal thickening. Minimal dependent changes likely atelectasis. No other focal nodule or infiltr ate. Musculoskeletal: Normal osseous structures. IMPRESSION: 1. No evidence of pulmonary embolus. 2. Mild diffuse bronchial wall thickening suggested. This could indicate bronchitis. 3. No focal infiltrate to suggest pneumonia or other evidence of acute intrathoracic pathology. Electronically signed by: Ezra Yuan M.D. 07/22/2019 5:54 PM Dictated: 07/22/19 1748 PG Care Time/CCT Total # of Minutes Spent Total Time Spent with Patient: Total time spent is greater than 50% in coordinat ion of care (as documented) at patient's floor/unit and/or counseling patient:
[2019-07-23] MEDS ORDERED: DOXYCYCLINE HYCLATE 100 MG in DEXTROSE 5% 100 ML IV STA (11:00)
[2019-07-23 12:11] LABS: Lyme Ab IgG w/WB Rflx Negative (Negative); Lyme Ab IgM w/WB Rflx Negative (Negative)
[2019-07-23] MEDS: PIPERACILLIN/TAZOBACTAM 3.375 GM in DEXTROSE 5% 100 ML IV SCH (16:19)
--- NOTE | 2019-07-23 18:37 | Consultation Report ---
DATE OF CONSULTATION: 07/23/2019 CONSULTATION REQUESTED BY: Dr. Kenny Faye. REASON FOR CONSULTATION: Chest pain and troponin elevation. HISTORY OF PRESENT ILLNESS: The patient is a very pleasant 29-year-old woman who does not have a primary care physician. She presented to [facility] on 07/22/2019 with complaints of fever. She states that she noticed the fever started approximately 4 days ago and has become rather severe. She has had associated myalgias, fatigue and anorexia. At the same time, she also notes some chest tightness. She states that whenever she increases her breathing rate or takes a deep breath, she will develop chest pain across her right sternal border. She initially went to [facility] on 07/20/2019 where she was started on doxycycline and p.r.n. ibuprofen. Her fever persisted and she came into the Emergency Department. Upon arrival, initial infectious disease workup was unremarkable; however, troponin was drawn for some reason and it was minimally elevated. Cardiology was then consulted for evaluation of elevated troponin level. Currently, the patient states that she is feeling well at rest, but still having fevers and myalgias and her chest pain persists only with deep inhalation. PAST SURGICAL HISTORY: Knee surgery. MEDICAL ILLNESSES: Denies. FAMILY HISTORY: Denies any premature coronary artery disease or sudden cardiac . SOCIAL HISTORY: Denies any alcohol, tobacco or recreational drug use. She is . She has 2 small children, ages 3 and 1. REVIEW OF SYSTEMS: As per HPI, all other review of systems reviewed and negative at this time. ALLERGIES: 1. AZITHROMYCIN. 2. CEPHALOSPORINS. MEDICATIONS AN OUTPATIENT: Oral contraceptives. PHYSICAL EXAMINATION: VITALS: Temperature 37.3, pulse 98, respiratory rate 12, blood pressure 119/82. GENERAL: Awake, alert, oriented x3, in no acute distress. HEENT: Normocephalic, atraumatic. Pupils equal, round, reactive to light and accommodation. Extraocular muscles intact. Anicteric sclerae. Moist mucous membranes. NECK: No JVD, no bruit. CARDIOVASCULAR: Regular. No S4. Normal S1 and S2. No S3. No murmurs, rubs or gallops. PULMONARY: Clear to auscultation bilaterally. No rales, rhonchi or wheezing. ABDOMEN: Bowel sounds x4, soft. No rebound, guarding, tenderness. No organomegaly. EXTREMITIES: No clubbing, cyanosis or edema. +2 pedal pulses bilaterally. SKIN: Warm and dry. LABORATORY STUDIES OF SIGNIFICANCE: Troponin initially of 0.06, followed by 0.04, followed by 0.05. A 12-lead EKG performed in the Emergency Department independently reviewed at this time shows normal sinus rhythm at 93 beats per minute, normal axis, normal intervals, no signs of ischemia, normal study. A 2D echocardiogram performed 07/22/2019 was read as normal LV chamber size with mild concentric LVH, normal LV systolic function, EF 55%-60%, no segmental left ventricular wall motion abnormalities are present, normal diastolic function, mild mitral regurgitation, mild tricuspid regurgitation. IMPRESSION: 1. Reproducible chest pain with right 3rd rib stuck in exhalation. 2. Minimal troponin elevation in the setting of significant fevers, myalgias and rigors. 3. Fever of unknown origin. RECOMMENDATIONS: It was my pleasure to see the patient in consultation today. From a cardiac standpoint, her chest pain is reproducible and obviously not cardiac in nature. In terms of her troponin elevation, she was counseled this likely represents peripheral muscle breakdown given her current clinical state and I do not see any signs of acute ischemia and no further cardiac testing or intervention is necessary. At this point, Infectious Disease has been consulted and has seen the patient for fever. No further cardiac recommendations at this time. Obviously no further testing is necessary.
[2019-07-23] MEDS: DOXYCYCLINE HYCLATE 100 MG in DEXTROSE 5% 100 ML IV SCH (22:13)
[2019-07-24] MEDS: PIPERACILLIN/TAZOBACTAM 3.375 GM in DEXTROSE 5% 100 ML IV SCH ×2 (00:08→08:10)
[2019-07-24] MEDS: IBUPROFEN 600 MG TAB PO SCH ×3 (05:49→21:13)
[2019-07-24 07:25] LABS: Creatinine Clr Calc Pharmacy 106.2 ml/min; Est GFR (African American) 135.1; Est GFR (Non-African American) 116.6
[2019-07-24] MEDS: predniSONE 20 MG TAB PO SCH (08:11)
[2019-07-24] MEDS: DOXYCYCLINE HYCLATE 100 MG in DEXTROSE 5% 100 ML IV SCH (09:29)
--- NOTE | 2019-07-24 13:47 | Infectious Disease Progress Nt ---
Date of Service July 24, 2019 Assessment & Plan (1) Fever: 29-year-old previously healthy female with acute febrile illness associated with chest pain and elevated troponin, suggestive of myocarditis. Despite negative smear, certainly Anaplasma and Lyme disease are possibilities, and so I have restarted patient on IV doxycycline to see if she better tolerates. Would order Lyme serology if not already obtained. Will await final blood culture results. No clear bacterial infection found. If remains stable and afebrile with negative cultures could continue emperic doxy pending serologies. (2) Elevated troponin: Subjective pt seen in followup, was previously followed by Dr. Bates. Family at bedside, appears comfortable on exam but states diffuse body aches worse today. also with nausea, no better on IV doxy, also on zosyn, states not eating but denies v/d. no cp, no cough, no sob. LP normal, csf and blood cultures negative. lyme serology pending. afebrile. Review of Systems Review of Systems: All systems reviewed & are unremarkable except as noted in HPI & below Physical Exam Constitutional: WD/WN, vitals as above Eyes: PERRL, conjunctivae normal, anicteric sclerae ENMT: external ear and nose normal, oropharynx normal Neck: trachea midline, no thyromegaly Respiratory: normal respiratory effort, lungs clear to auscultation Cardiovascular: RRR, no murmur, no edema Gastrointestinal (Abdomen): normal bowel sounds, soft, nontender, no hepatosplenomegaly Musculoskeletal: no cyanosis or clubbing, extremities motor strength 5/5 Skin: no rashes, warm and dry Psychiatric: A+Ox3, euthymic affect Results & Data Vital Signs (Past 12 Hours) Vital Signs Temp Pulse Pulse Resp BP Pulse Ox 07/24/19 11:43 36.3 C L 80 18 117/81 97 07/24/19 08:00 71 07/24/19 07:26 36.6 C 80 18 136/88 97 07/24/19 03:14 36.8 C 75 19 127/86 99 Laboratory Results Microbiology 07/22/19 13:20 Cerebral Spinal Fluid Gram Stain - Final 07/22/19 13:20 Cerebral Spinal Fluid CSF Culture - Final No growth 07/23/19 07:20 Blood Aerobic Blood Culture - Preliminary No growth in Aerobic bottle after 24 hours. 07/23/19 07:20 Blood Anaerobic Blood Culture - Preliminary No growth in Anaerobic bottle after 24 hours. 07/23/19 07:29 Blood Aerobic Blood Culture - Preliminary No growth in Aerobic bottle after 24 hours. 07/23/19 07:29 Blood Anaerobic Blood Culture - Preliminary No growth in Anaerobic bottle after 24 hours. 07/22/19 05:33 Blood Aerobic Blood Culture - Preliminary No growth in Aerobic bottle after 48 hours. 07/22/19 05:33 Blood Anaerobic Blood Culture - Preliminary No growth in Anaerobic bottle after 48 hours. 07/22/19 05:33 Blood Aerobic Blood Culture - Preliminary No growth in Aerobic bottle after 48 hours. 07/22/19 05:33 Blood Anaerobic Blood Culture - Preliminary No growth in Anaerobic bottle after 48 hours. 07/22/19 13:20 Cerebral Spinal Fluid Cryptococcal Antigen Test - Final PG Care Time/CCT Total # of Minutes Spent Total Time Spent with Patient: Total time spent is greater than 50% in coordination of care (as documented) at patient's floor/unit and/or counseling patient:
--- NOTE | 2019-07-24 16:34 | Hospitalist Progress Note ---
Date of Service July 24, 2019 Assessment & Plan (1) Fever: -initial presentation to hospital on 07/22/19 with 4 days of high fevers with myalgias, fatigue, chest tightness -as per history She recently [place] a local [place] for one day and came down with a headache the next day, followed by a high fever just after. She has two toddlers who have not been ill. She denies any respiratory symptoms or other recent infections or other travel -patient was started in urgent care of doxycycline on 07/20/19 for possible respiratory infection which she took for 2 days -CTA scan 07/22/19: No evidence of pulmonary embolus. Mild diffuse bronchial wall thickening suggested which may indicate bronchitis. But there were No focal infiltrate to suggest pneumonia or other evidence of acute intrathoracic pathology. -Negative influenza swab -WBC have been normal on admission, no urinary tract infection -Monoscreen negative -history of migraines and reported migraine headache and neck pain on admission; Lumbar puncture on 07/22/19 with normal CSF -Enterovirus RNA pending -Tmax 39.3 on evening of 07/22/19; patient associates fever during night times -ESR and CRP elevated -BRANDI screening test pending -Anaplasmosis peripheral smear is negative, Lyme negative. Doxycycline which was empirically started on 07/23/19 is stopped as of 07/24/19 -patient reported allergic reaction to a cephalosporin years ago when in high school but appeared to be able to cousins of cephalosporins antibiotics. was st arted on Zosyn empirically on 07/23/19 with no acute events. blood cultures from 07/22/19 and 07/23/19 with no growth to date -08/03/19 based on negative blood cultures and negative Tick borne disease, discu ssed with infectious disease consult in regards to stop all antibiotics and monitor patient overnight as current workup to date appears to have generally ruled out bacterial causes of fever -likely source of fever from pericarditis versus myocarditis (2) Elevated troponin: pericarditis versus myocarditis -Presented with chest tightness worse with exertion and improved with sitting up. also with fever -troponins above baseline on this admission with peak of 0.06; echocardiogram with normal ejection fractions -continue ibuprofren as scheduled 600 mg q8 hours, started prednisone 20 mg daily -no further cardiac workup as per cardiology service (3) Acute hypokalemia: -serum potassium of 3 on admission; Probable secondary to poor oral intake, vomiting -has resolved with potassium repletion DVT Prophylaxis -SCDs, ecourage ambulation Disposition: if patient remains afebrile off antibiotics, then can consider discharge on 07/25/19 off antibiotics Patient does not have primary care doctor and would like establishment of care with [facility] affiliated PCP with preference to [facility] Subjective Patient at bedside is comfortable. Does not complain of significant myalgias. no fever today. no vomiting. breathing on room air. chest discomforts appeared improved. no dizziness. Physical Exam Constitutional: comfortable Eyes: EOM intact bilaterally ENMT: external ear and nose normal, oropharynx normal Neck: normal visual inspection Respiratory: normal respiratory effort, lungs clear to auscultation Cardiovascular: Rate/Rhythm: regular rate and regular rhythm Gastrointestinal (Abdomen): Inspection/Auscultation: abdomen normal to inspection Musculoskeletal: Head/Neck/Chest: normocephalic and head atraumatic Neurologic: CN's II-XI intact bilaterally Psychiatric: A+Ox3, euthymic affect Results & Data Vital Signs (Past 12 Hours) Vital Signs Temp Pulse Pulse Resp BP BP Pulse Ox 07/24/19 15:13 94 H 07/24/19 15:08 36.8 C 87 18 113/78 98 07/24/19 11:43 36.3 C L 80 18 117/81 97 07/24/19 08:00 71 07/24/19 07:26 36.6 C 80 18 136/88 97
[2019-07-24 17:23] LABS: Anti Nuclear Antibody Screen POSITIVE (NEGATIVE)
[2019-07-24] MEDS ORDERED: DiphenhydrAMINE HCL 50 MG/ML VIAL IV STA (18:46)
[2019-07-25] MEDS: IBUPROFEN 600 MG TAB PO SCH (06:06)
[2019-07-25] MEDS: predniSONE 20 MG TAB PO SCH (08:28)
--- NOTE | 2019-07-25 08:44 | Hospitalist Progress Note ---
Date of Service July 25, 2019 Assessment & Plan (1) Fever: -initial presentation to hospital on 07/22/19 with 4 days of high fevers with myalgias, fatigue, chest tightness -as per history She recently [place] a local [place] for one day and came down with a headache the next day, followed by a high fever just after. She has two toddlers who have not been ill. She denies any respiratory symptoms or other recent infections or other travel -patient was started in urgent care of doxycycline on 07/20/19 for possible respiratory infection which she took for 2 days -CTA scan 07/22/19: No evidence of pulmonary embolus. Mild diffuse bronchial wall thickening suggested which may indicate bronchitis. But there were No focal infiltrate to suggest pneumonia or other evidence of acute intrathoracic pathology. -Negative influenza swab -WBC have been normal on admission, no urinary tract infection -Monoscreen negative -history of migraines and reported migraine headache and neck pain on admission; Lumbar puncture on 07/22/19 with normal CSF -Enterovirus RNA pending -Tmax 39.3 on evening of 07/22/19; patient associates fever during night times -ESR and CRP elevated -BRANDI screening test pending -Anaplasmosis peripheral smear is negative, Lyme negative. Doxycycline which was empirically started on 07/23/19 is stopped as of 07/24/19 -patient reported allergic reaction to a cephalosporin years ago when in high school but appeared to be able to cousins of cephalosporins antibiotics. was st arted on Zosyn empirically on 07/23/19 with no acute events. blood cultures from 07/22/19 and 07/23/19 with no growth to date -08/03/19 based on negative blood cultures and negative Tick borne disease, discu ssed with infectious disease consult in regards to stop all antibiotics and monitor patient overnight as current workup to date appears to have generally ruled out bacterial causes of fever -likely source of fever from pericarditis versus myocarditis Discharge Disposition: Discharge to Home (Patient has been afebrile to date since 07/22/19 Patient may take acetaminophen 325 mg every 6 hours as needed if fever or mild pain Pain control of suspected pericarditis as cause of fever as ibuprofen 600 mg every 8 hours and prednisone 20 mg daily for 5 more days Discharge medications sent electronically to [facility] [address] [place] [address] Patient should follow up with primary care doctor and any additional outpatient testing if autoimmune disorders are suspected as patient has positive BRANDI screening test while in the hospital. Patient also counseled that a positive BRANDI test does not mean that she has an autoimmune disorder currently Primary Care Doctor appointment 07/30/2019 1:00 PM Provider DO [facility]) (2) Elevated troponin: pericarditis versus myocarditis -Presented with chest tightness worse with exertion and improved with sitting up. also with fever -troponins above baseline on this admission with peak of 0.06; echocardiogram with normal ejection fractions -continue ibuprofren as scheduled 600 mg q8 hours,continue prednisone 20 mg daily -no further cardiac workup as per cardiology service (3) Acute hypokalemia: -serum potassium of 3 on admission; Probable secondary to poor oral intake, vomiting -has resolved with potassium repletion Discharge Diagnosis: fever from pericarditis versus myocarditis, elevated troponins from pericarditis versus myocarditis, hypokalemia (resolved) Subjective continues to be afebrile. no myalgia. no headache. no dizziness. no lighthea dedness. no abdomen pain. no vomiting. no shortness of breath. breathing on room air. no acute chest pain complaints Physical Exam Constitutional: comfortable Eyes: EOM intact bilaterally ENMT: external ear and nose normal, oropharynx normal Neck: normal visual inspection Respiratory: normal respiratory effort, lungs clear to auscultation Cardiovascular: Rate/Rhythm: regular rate and regular rhythm Gastrointestinal (Abdomen): Inspection/Auscultation: abdomen normal to inspection Musculoskeletal: Head/Neck/Chest: normocephalic and head atraumatic Neurologic: CN's II-XI intact bilaterally Psychiatric: A+Ox3, euthymic affect Results & Data Vital Signs (Past 12 Hours) Vital Signs Temp Pulse Pulse Resp BP BP Pulse Ox 07/25/19 07:07 91 H 07/25/19 06:18 36.5 C 76 19 122/83 97 07/25/19 05:00 36.7 C 80 18 129/87 96 07/25/19 01:00 109/74 07/25/19 00:42 66 07/24/19 23:07 36.6 C 57 L 19 110/73 99 07/24/19 21:40 74
--- NOTE | 2019-07-25 08:54 | Discharge Summary ---
Date of Service July 25, 2019 Admission HPI Per Admitting Provider Pt is 29 y/o F without significant PMH presented to ER with c/o fever x 4 days. Reports onset of fatigue, myalgias, decreased appetite, chest tightness and fever of 103. Has been taking Tylenol and Ibuprofen for fever which helps initially and then fever returns. Pt states chest tightness and denies SOB. Chest tightness worse with exertion and improved some with sitting up. Denies any cough, rhinorrhea, sore throat, swollen glands, otalgia. Also c/o intermittent BUI. Reports history migraines in past. States 07/20/19 was seen at urgent care and started on doxycycline BID for possible lower respiratory tract infection. After starting doxycycline pt reports nausea and reports vomiting after taking Doxycycline. Denies abdominal pain. Denies any improvement of symptoms since starting antibiotic. Denies diarrhea, constipation, dizziness, syncope, vision changes, neck pain, neck stiffness, orthopnea, palpitations, hemoptysis, paresthesias, weakness, extremity weakness, extremity edema, rashes, urinary symptoms. Denies recent travel, recent tick bite, ill contacts. Moved to [place] from [place] in April 2019, hasn't established with PCP yet. Admission Exam Per Admitting Provider General: no distress, non-toxic appearance, WDWN Head: normocephalic, atraumatic Eyes: PERRL, EOM's intact, conjunctiva non-injected, anicteric ENT: normal inspection external ears, nose, mucous membranes moist, no pharyngeal erythema or edema or exudate Neck: supple, trachea midline, non-tender, ROM intact, no rigidity Lungs: clear, no respiratory distress, no wheezing/rhonchi/rales; chest wall without tenderness CV: RRR, no murmur, no pretibial edema Abd: normal BS, soft, non-tender Ext: no cyanosis, no calf tenderness Neuro: A&O x 3, no focal deficits noted, normal affect Skin: warm, dry Principal Diagnosis fever from pericarditis versus myocarditis, elevated troponins from pericarditis versus myocarditis, hypokalemia (resolved) Discharge Exam Constitutional comfortable Eyes EOM intact bilaterally ENMT external ear and nose normal, oropharynx normal Neck normal visual inspection Respiratory normal respiratory effort, lungs clear to auscultation Cardiovascular Rate/Rhythm: regular rate and regular rhythm Gastrointestinal (Abdomen) Inspection/Auscultation: abdomen normal to inspection Musculoskeletal Head/Neck/Chest: normocephalic and head atraumatic Neurologic CN's II-XI intact bilaterally Psychiatric A+Ox3, euthymic affect Discharge Data Allergies Allergy/AdvReac Type Severity Reaction Status Date / Time Cephalosporins Allergy Intermediate throat and Verified 07/22/19 05:46 face swelling azithromycin Allergy Mild Rash Verified 07/22/19 05:46 Consultations 07/22/19 06:38 ED Decision to Admit Stat 07/22/19 16:37 Consult Infectious Diseases Routine 07/23/19 08:40 Consult Cardiology Routine Ordered Studies 07/22/19 13:00 FL lumbar puncture diagnostic Urgent 07/22/19 16:48 CT angio chest PE protocol Urgent Hospital Course (1) Fever: -initial presentation to hospital on 07/22/19 with 4 days of high fevers with myalgias, fatigue, chest tightness -as per history She recently visited a local [place] for one day and came down with a headache the next day, followed by a high fever just after. She has two toddlers who have not been ill. She denies any respiratory symptoms or other recent infections or other travel -patient was started in urgent care of doxycycline on 07/20/19 for possible respiratory infection which she took for 2 days -CTA scan 07/22/19: No evidence of pulmonary embolus. Mild diffuse bronchial wall thickening suggested which may indicate bronchitis. But there were No focal infiltrate to suggest pneumonia or other evidence of acute intrathoracic pathology. -Negative influenza swab -WBC have been normal on admission, no urinary tract infection -Monoscreen negative -history of migraines and reported migraine headache and neck pain on admission; Lumbar puncture on 07/22/19 with normal CSF -Enterovirus RNA pending -Tmax 39.3 on evening of 07/22/19; patient associates fever during night times -ESR and CRP elevated -BRANDI screening test positive -Anaplasmosis peripheral smear is negative, Lyme negative. Doxycycline which was empirically started on 07/23/19 is stopped as of 07/24/19 -patient reported allergic reaction to a cephalosporin years ago when in high school but appeared to be able to cousins of cephalosporins antibiotics. was started on Zosyn empirically on 07/23/19 with no acute events. blood cultures from 07/22/19 and 07/23/19 with no growth to date -08/03/19 based on negative blood cultures and negative Tick borne disease, discussed with infectious disease consult in regards to stop all antibiotics and monitor patient overnight as current workup to date appears to have generally ruled out bacterial causes of fever -likely source of fever from pericarditis versus myocarditis Discharge Disposition: Discharge to Home (Patient has been afebrile to date since 07/22/19 Patient may take acetaminophen 325 mg every 6 hours as needed if fever or mild pain Pain control of suspected pericarditis as cause of fever as ibuprofen 600 mg every 8 hours and prednisone 20 mg daily for 5 more days Discharge medications sent electronically to [facility] pharmacy [address] [place] [address] Patient should follow up with primary care doctor and any additional outpatient testing if autoimmune disorders are suspected as patient has positive BRANDI screening test while in the hospital. Patient also counseled that a positive BRANDI test does not mean that she has an autoimmune disorder currently Primary Care Doctor appointment 07/30/2019 1:00 PM Provider DO Niels Nicole [facility]) (2) Elevated troponin: pericarditis versus myocarditis -Presented with chest tightness worse with exertion and improved with sitting up. also with fever -troponins above baseline on this admission with peak of 0.06; echocardiogram with normal ejection fractions -continue ibuprofren as scheduled 600 mg q8 hours,continue prednisone 20 mg daily -no further cardiac workup as per cardiology service (3) Acute hypokalemia: -serum potassium of 3 on admission; Probable secondary to poor oral intake, vomiting -has resolved with potassium repletion Discharge Diagnosis: fever from pericarditis versus myocarditis, elevated troponins from pericarditis versus myocarditis, hypokalemia (resolved) Total Time Total Time Spent Total Time Spent (In Minutes): 40 minutes Total Time Includes: Examination of the Patient, Discharge Planning, Medication Reconciliation and Communication With Other Providers Discharge Plan Discharge Items Patient Disposition: Home - Self-Care Reason For Visit: ELEVATED TROPONIN Discharge Diagnosis: fever from pericarditis versus myocarditis, elevated troponins from pericarditis versus myocarditis, hypokalemia (resolved) Condition: Good Discharge Goals: Improve disease control Activity: Resume your previous activity Non-emergency contact: Primary Care Provider Call non-emergency contact if: you have any medication questions Follow-up/Referrals: PCP,NO [Primary Care Provider] - Diet: Regular Addtl Provider Instructions: Patient has been afebrile to date since 07/22/19 Patient may take acetaminophen 325 mg every 6 hours as needed if fever or mild pain Pain control of suspected pericarditis as cause of fever as ibuprofen 600 mg every 8 hours and prednisone 20 mg daily for 5 more days Discharge medications sent electronically to [facility] pharmacy [address] [place] [address] Patient should follow up with primary care doctor and any additional outpatient testing if autoimmune disorders are suspected as patient has positive BRANDI screening test while in the hospital. Patient also counseled that a positive BRANDI test does not mean that she has an autoimmune disorder currently Primary Care Doctor appointment 07/30/2019 1:00 PM Provider DO Niels Nicole [facility] Prescriptions: New acetaminophen 325 mg tablet 325 mg PO Q6H PRN (Reason: fever or mild pain) 10 Days Qty: 40 RF: 0 ibuprofen 600 mg tablet 600 mg PO Q8H 5 Days Qty: 15 RF: 0 prednisone 20 mg tablet 20 mg PO DAILY 5 Days Qty: 5 RF: 0 Continued Control Pills 1 tab PO DAILY RF: 0 Discontinued doxycycline hyclate 100 mg capsule 100 mg PO BID RF: 0 Stand-Alone Forms: [facility] Discharge Orders: Discharge Order (Routine); Ordered 07/25/19 Ordered By: Kenny Faye Admission Data Admit Date/Time: 07/23/19 09:17 Attending Provider: Kenny Faye Admit Provider: Ayesha Fernandes Primary Care Provider: PCP,NO Other Providers: Anson Wheeler ; Danny Bates ; Philip Bland Service: Telemetry Medical
[2019-07-25 12:36] LABS: ANA Pattern SPECKLED
[2019-07-25 15:05] LABS: Enterovirus RNA by PCR Not Detected (Not Detected); Lyme DNA PCR CSF or Synovial Not detected (Not Detected); Lyme DNA Source CSF
--- NOTE | 2019-07-25 16:45 | Cardiology Progress Note ---
Date of Service July 25, 2019 Assessment & Plan (1) Chest pain: reproducible with right 3rd rib stuck in exhalation echocardiogram with normal wall motion and systolic function normal ekg no sign of pericarditis or myocarditis I will d/c ibuprofen and prednisone (2) Elevated troponin: secondary to peripheral muscle breakdown in the setting of fever and rigors Subjective Pt seen and examined, states that she feels better, no recurrence of chest discomfort. Denies sob, palpitations, lightheadedness or dizziness. tele reviewed: sinus rhythm without arrhythmia or significant ectopy Review of Systems Review of Systems: All systems reviewed & are unremarkable except as noted in HPI & below Physical Exam Physical Exam: Physical Exam: General: Awake, alert and oriented x 3. No acute distress. HEENT: Normocephalic, atraumatic. Pupils equal, round and reactive to light and accommodation. Extraocular muscles are intact. Anicteric sclera. Moist mucous membranes. Neck: No JVD. No bruit. Cardiovascular: Regular. No S-4. Normal S-1 and S-2. No S-3. No murmurs, rubs or gallops. Pulmonary: Clear to auscultation bilaterally. No rales, rhonchi, or wheezing. Abdomen: Bowel sounds x 4, soft. No rebound, guarding or tenderness. No organomegaly. Extremities: No clubbing, cyanosis or edema. +2 pedal pulses bilaterally. Skin: Warm and dry. Results & Data Vital Signs (Past 12 Hours) Vital Signs Temp Pulse Pulse Pulse Pulse Resp BP 07/25/19 09:05 36.5 C 99 H 75 76 19 122/83 07/25/19 07:07 91 H 07/25/19 06:18 36.5 C 76 19 122/83 07/25/19 05:00 36.7 C 80 18 BP Pulse Ox 07/25/19 09:05 129/87 97 07/25/19 07:07 07/25/19 06:18 97 07/25/19 05:00 129/87 96
== END 2019-07-25 10:27 | disposition home or self-care (01) | DRG 315 ==
LOC: 2N 05:12 → ED 05:12 → SUATTDRO 08:20 → 2N 08:59

== ENCOUNTER 2020-10-08 03:38 | Inpatient (IN) ==
[2020-10-08 04:58] LABS: Eosinophils # (auto) 0.05 K/uL (0-0.5); Eosinophils % (auto) 0.7 %; Hematocrit (blood only) 31.6 % (37-47); Hemoglobin 10.7 g/dL (12.0-16.0); Immature Granulocytes # (auto) 0.02 K/uL (0.00-0.02); Immature Granulocytes % (auto) 0.3 %; Lymphocytes # (auto) 1.38 K/uL (1.2-3.4); Lymphocytes % (auto) 19.9 %; Mean Corpuscular Hemoglobin 30.4 pg (25-34); Mean Corpuscular Volume 89.8 fL (80-100); Mean Platelet Volume 10.8 fL (7.4-10.4); Monocytes # (auto) 0.72 K/uL (0.11-0.59); Monocytes % (auto) 10.4 %; Neutrophils # (auto) 4.76 K/uL (1.4-6.5); Neutrophils % (auto) 68.7 %; Platelet Count 233 K/uL (130-400); RDW Coefficient of Variation 13.8 % (11.5-14.5); RDW Standard Deviation 45.1 fL (36.4-46.3); Red Blood Count 3.52 M/uL (4.2-5.4); White Blood Count 6.93 K/uL (4.8-10.8)
[2020-10-08 05:18] LABS: Albumin Level 2.7 gm/dl (3.4-5.0); BUN Creatinine Ratio 17.4 (10-20); Calcium 8.5 mg/dl (8.5-10.1); Creatinine Clr Calc Pharmacy 159.1 ml/min; Est GFR (African American) 146.5; Est GFR (Non-African American) 126.4; Potassium 3.7 mmol/L (3.5-5.1)
[2020-10-08 05:20] LABS: Albumin Globulin Ratio 0.6 (0.9-2); Bilirubin,Total 0.3 mg/dl (0.2-1); Globulin 4.2 gm/dl (2.5-4.0); Total Protein 6.9 gm/dl (6.4-8.2)
[2020-10-08 06:07] LABS: Mean Corpuscular Hgb Conc 33.9 g/dL (32-36)
[2020-10-08] MEDS ORDERED: OXYTOCIN 30 UNITS/500 ML BAG IV PRN (07:25)
[2020-10-08] MEDS ORDERED: miSOPROStoL 50 MCG TAB PO ONE (07:25)
[2020-10-08] MEDS ORDERED: MEPERIDINE HCL 50 MG/ML CARP IM ONE (07:33)
[2020-10-08] MEDS ORDERED: PENICILLIN G POTASSIUM 6 MU in DEXTROSE 5% 250 ML IV ONE (07:45)
[2020-10-08] MEDS: LACTATED RINGER'S 1,000 ML IV PRN (07:57)
[2020-10-08] MEDS ORDERED: ONDANSETRON INJ 2 MG/ML 2 ML VIAL IV PRN (08:02)
--- NOTE | 2020-10-08 08:10 | History and Physical Report ---
DATE OF ADMISSION: 10/08/2020 CHIEF COMPLAINT: Severe headache, intrauterine 36 weeks 3 days. HISTORY OF PRESENT ILLNESS: The patient is a 30-year-old 4, para 2. She had 1 spontaneous AB. General health is good. She was on baby aspirin throughout early in her because she has a history of hypertension and her due date is 11/02/2020. Her obstetrical history is as follows: In 2016, she had an induction at 38 weeks, female, 6 pounds 10 ounces. She had a severe migraine associated with elevated blood pressure, labor was 12 hours. She pushed 30 minutes. In 2018, she had a second induction, girl, 6 pounds at 37 weeks and she developed elevated blood pressure, proteinuria, 24-hour labor, pushed like 5 minutes, been followed in our office for care and delivery earlier in her . started on baby aspirin daily because of a history of hypertension. About 2 weeks ago, she was started on labetalol 100 mg 3 times a day. She called with severe headache. She was told to go to maternity for evaluation. PAST MEDICAL HISTORY: SHE IS ALLERGIC TO ERYTHROMYCIN AND CEFDIL. PAST SURGICAL HISTORY: She has had both her knees operated on. She had wisdom teeth removed. She has two children in good health. MEDICAL HISTORY: She has been on labetalol 100 mg 3 times a day. SOCIAL HISTORY: No smoking, no alcohol intake. Works from home. FAMILY HISTORY: Mom 63 in good health. Father 63 in good health. One brother and 1 sister in good health. REVIEW OF SYSTEMS: She does have a history of migraines, but has not had any migraines in the last 2-3 years. PHYSICAL EXAMINATION: GENERAL: Well-developed, well-nourished 30-year-old white female, alert, oriented x3 and cooperative, no acute distress, appears stated age. EYES: Conjunctivae are pink. Sclerae white, no evidence of jaundice. EARS: Had normal light reflex bilaterally. NOSE: Had normal mucosa. Septum is midline. There were no polyps. THROAT: No erythema or evidence of infection. Teeth are in good state of repair. HEAD: Normocephalic, normal distribution of hair. NECK: Supple. Trachea midline. Thyroid is not enlarged. There is no adenopathy appreciated. Both carotids are of good intensity. CHEST: Clear to auscultation and percussion. No wheezes, rales or rhonchi appreciated. HEART: Had regular rhythm. ABDOMEN: Consistent with a 36-week gestational size fetus. No CVA tenderness, no fundal tenderness. PELVIC: Vertex presentation. Cervix 1.5 cm, -3 station, 50% effaced, posterior. MUSCULOSKELETAL: Reflexes were not elevated. IMPRESSIONS OF THIS CASE: Hypertension, associated with , intrauterine 36 weeks 3 days, history of headache.
[2020-10-08] MEDS: LABETALOL HCL 100 MG TAB PO SCH ×3 (08:22→20:52)
[2020-10-08] MEDS ORDERED: PENICILLIN G POTASSIUM 3 MU in DEXTROSE 5% 100 ML IV SCH (12:00)
[2020-10-08] MEDS ORDERED: DINOPROSTONE 10 MG INSERT PV ONE (15:30)
[2020-10-08] MEDS ORDERED: ACETAMINOPHEN 325 MG TAB PO PRN (15:39)
[2020-10-08] MEDS: PENICILLIN G POTASSIUM 3 MU in DEXTROSE 5% 100 ML IV PRN ×2 (16:18→20:45)
[2020-10-09] MEDS ORDERED: BUTORPHANOL TARTRATE 1 MG/ML VIAL IV ONE (00:35)
[2020-10-09] MEDS: PENICILLIN G POTASSIUM 3 MU in DEXTROSE 5% 100 ML IV PRN ×4 (00:38→12:50)
[2020-10-09] MEDS ORDERED: OXYTOCIN 30 UNITS/500 ML BAG IV PRN ×2 (04:16→14:00)
[2020-10-09] MEDS: LACTATED RINGER'S 1,000 ML IV PRN ×2 (06:15→08:13)
[2020-10-09] MEDS ORDERED: SODIUM CHLORIDE 0.9% INJ 10 ML VIAL ONE ×2 (07:42→12:43)
[2020-10-09] MEDS ORDERED: BUPIVACAINE 0.25% 30 ML VIAL ONE ×2 (07:42→12:30)
[2020-10-09] MEDS ORDERED: ePHEDrine sulfate 50 MG/ML AMP ONE (07:42)
[2020-10-09] MEDS ORDERED: fentaNYL 2MCG/ML ROPIVACAINE 1.25MG/ML 100 ML BAG EPI ONE (07:43)
[2020-10-09] MEDS ORDERED: fentaNYL citrate 100 MCG/2 ML VIAL ONE ×2 (07:45→12:31)
--- NOTE | 2020-10-09 08:24 | Anesthesiology Consultation ---
Date of Service October 09, 2020 Assessment & Plan Chart Review Chart Review: Acceptable Risk for Surgery, Patient NOT seen in Pre Admission Testing and Acceptable Risk for Labor Epidural Consults Requested none ASA ASA3 Proposed Anesthesia Anesthesia Type: Labor Epidural and CSE Risk / Benefits Reviewed With: PT / POA / Parent / Guardian, Accepts Plan and Informed Consent Obtained Additional Comments: covid test negative History Height/Weight Height: 5 ft 2 in Weight: 87.09 kg Allergies Allergy/AdvReac Type Severity Reaction Status Date / Time Cephalosporins Allergy Intermediate throat and Verified 10/08/20 04:02 face swelling azithromycin Allergy Mild Rash Verified 10/08/20 04:02 Medications Home Medications Medication Instructions Recorded Confirmed Last Taken labetalol 100 mg PO TID 10/08/20 10/08/20 10/07/20 17:30 prenat.vits,manoj,hym-bqht-hivou 1 tab PO DAILY 10/08/20 10/08/20 10/07/20 08:00 [ Vitamin] Active Medications Generic Name Dose Route Start Last Admin Trade Name Freq PRN Reason Stop Dose Admin Acetaminophen 650 mg 10/08/20 15:39 10/08/20 16:13 Acetaminophen 325 Mg Tab PO 11/07/20 15:38 650 mg Q4H PRN Administration Headache Lactated Ringer's 1,000 mls @ 125 mls/hr 10/08/20 07:25 10/09/20 08:13 Lr IV 10/10/20 07:24 125 mls/hr .Q8H PRN Administration L&D Protocol Protocol Penicillin G Potassium 3 mu/ 106 mls @ 100 mls/hr 10/08/20 12:30 10/09/20 05:10 Dextrose IV 10/18/20 11:59 100 mls/hr Q4H PRN Administration GBS Protocol Oxytocin 30 units in 500 mls @ 8 mls/hr 10/09/20 04:16 10/09/20 07:20 Pitocin IV 10/11/20 04:15 0.48 units/hr .Q24H PRN 8 mls/hr Labor Induction/Augmentation Titration Protocol 0.48 UNITS/HR Labetalol HCl 100 mg 10/08/20 09:00 10/08/20 20:52 Labetalol Hcl 100 Mg Tab PO 11/07/20 08:59 100 mg TID DANNIELLE Administration Ondansetron HCl 4 mg 10/08/20 08:02 10/08/20 08:18 Ondansetron Inj 2 Mg/Ml 2 Ml Vial IV 11/07/20 08:01 4 mg Q4H PRN Administration Nausea NPO Date Last Intake of Fluids: 10/09/20 Time Last Intake of Fluids: 05:00 Date Last Intake of Solids: 10/09/20 Time Last Intake of Solids: 05:00 Past Medical History Medical History No significant past medical history Preeclampsia 2015, 2017 Exercise / Class Metabolic Activity II 4-5 Yardwork/Stairs/Walk up hill Past Family History Family History Other No significant family history Past Surgical History Surgical History H/O knee surgery Past Anesthesia History No Hx of Anesthesia Complications and No Family Hx of Anesthesia Complications History of PONV No Hx of PONV and No Hx of Motion Sickness Social History Smoking Status: Never smoker Hx Alcohol Use: No Hx Substance Use: No substance use type: does not use Physical Exam Vital Signs Last Vital Signs Temp 36.8 C 10/09/20 07:14 Pulse 85 10/09/20 08:20 Resp 20 10/09/20 07:14 BP 122/81 10/09/20 08:20 Pulse Ox 96 10/09/20 08:16 Constitutional + obese ENMT Mouth: no dentition abnormality Thyromental Distance: < 3.5 Finger Breadths Mallampati Class: II Neck normal visual inspection and trachea midline; neck extension not limited Respiratory normal respiratory effort, lungs clear to auscultation normal respiratory effort Cardiovascular Rate/Rhythm: regular rate and regular rhythm Heart Sounds: normal S1 and normal S2 Vessels: no carotid bruit Neurologic moves all extremities; no focal motor deficits Motor/Sensory: normal movement Psychiatric Orientation: alert and oriented x 3 Testing Laboratory Results 10/08/20 04:52 10/08/20 04:48
[2020-10-09] MEDS ORDERED: NALOXONE HCL 0.4 MG/1 ML VIAL/CARP IV PRN (08:48)
[2020-10-09] MEDS ORDERED: PROMETHAZINE HCL 25 MG in SODIUM CHLORIDE 0.9% 50 ML IV PRN (08:48)
[2020-10-09] MEDS ORDERED: ePHEDrine sulfate 50 MG/ML AMP IV PRN (08:48)
[2020-10-09] MEDS ORDERED: diphenhydrAMINE 50 MG/ML VIAL IV PRN (08:48)
[2020-10-09] MEDS ORDERED: NALOXONE HCL 1 MG in SODIUM CHLORIDE 0.9% 1000ML 1,000 ML IV PRN (08:48)
[2020-10-09] MEDS ORDERED: ONDANSETRON INJ 2 MG/ML 2 ML VIAL IV PRN (08:48)
[2020-10-09] MEDS ORDERED: fentaNYL 2MCG/ML ROPIVACAINE 1.25MG/ML 100 ML BAG EPI PRN (08:48)
[2020-10-09] MEDS: LABETALOL HCL 100 MG TAB PO SCH ×3 (09:59→19:29)
--- NOTE | 2020-10-09 12:49 | Communication Note ---
Date of Service: October 09, 2020 at 1245pm, pt epidural was bolused w/ 12 ml 0.17% bupivacaine + 100 mcgs fentanyl;neg. incremental aspiration and injections; BP - 120/76;HR 92
[2020-10-09] MEDS ORDERED: bisacodyL 10 MG SUPP PR PRN (14:00)
[2020-10-09] MEDS ORDERED: DIPHTHERIA/TETANUS/PERTUSSIS 0.5 ML SYR/VIAL IM ONE (14:00)
[2020-10-09] MEDS ORDERED: HYDROCORTISONE ACETATE 25 MG SUPP PR PRN (14:00)
[2020-10-09] MEDS ORDERED: ACETAMINOPHEN W/CODEINE #3 1 TAB PO PRN (14:00)
[2020-10-09] MEDS ORDERED: BENZOCAINE 20% AER SPR 82.5 GM CAN EXT PRN (14:00)
[2020-10-09] MEDS ORDERED: ACETAMINOPHEN 325 MG TAB PO PRN (14:00)
[2020-10-09] MEDS ORDERED: oxyCODONE/ACETAMINOPHEN 5mg/325mg TAB PO PRN (14:00)
[2020-10-09] MEDS ORDERED: SUPERCREAM 0.870% 15 GM JAR EXT PRN (14:00)
--- NOTE | 2020-10-09 14:22 | Anesthesia Procedure Note ---
Date of Service October 09, 2020 Anesthesia Post Epidural Note Vital Signs Vital Signs: Temp Pulse Resp BP Pulse Ox 37.0 C 94 H 20 124/82 97 10/09/20 14:05 10/09/20 14:20 10/09/20 14:05 10/09/20 14:20 10/09/20 13:46 Pain Intensity Bilateral Abdomen: Pain Intensity: 0 Notes Mental Status: alert / awake / arousable Nausea / Vomiting: adequately controlled Pain: adequately controlled Airway Patency, RR, SpO2: stable & adequate BP & HR: stable & adequate Hydration State: stable & adequate Neuraxial Anesthesia: was administered and sensory block is resolving Anesthetic Complications: no major complications apparent Epidural: Removed without complications and With tip intact
[2020-10-09] MEDS: IBUPROFEN 600 MG TAB PO PRN (19:29)
[2020-10-09] MEDS: DOCUSATE SODIUM 100 MG CAP PO SCH (19:29)
--- NOTE | 2020-10-09 23:14 | Operative Report (OR) ---
DATE OF OPERATION: 10/09/2020 DELIVERY NOTE She is 2, para 3. She had 1 first trimester AB. Blood type is O positive, group B strep is unknown. She was admitted at 36+ weeks with a severe headache and elevated blood pressure. She had had elevated blood pressure with her previous 2 deliveries and in each case had to be induced early. During her present , we had started her on baby aspirin earlier in her ; however, about 34-35 weeks she began to develop hypertension. She was on labetalol 100 mg 3 times a day and she had been on it for about 10 days when she was admitted to the hospital with severe headache and elevated blood pressure. At that time, we did platelets, liver profile, everything else was normal. Reflexes were not hyperactive. So we elected just to treat her with labetalol 100 mg 3 times a day and with that her pressures came down and we induced her labor with the p.o. Cytotec followed by Cervidil tape and then the next day her membranes were ruptured. She was started on IV Pitocin. She received epidural, has got good pain relief. Eventually she went to full dilatation, pushed out a live male via direct occiput anterior position over an intact perineum. Infant was suctioned through the mouth and the nose. The cord was allowed to clamp for 1 minute, then the cord was clamped, cut by the father. breathed and cried spontaneously. Cord blood was taken. With IV Pitocin running, the placenta was removed intact. There was a small superficial laceration of the perineum. This was repaired with running Vicryl. Following this, hemostasis was good. Vaginal exam including rectovaginal examination revealed no hematoma formation or sponges in the vagina. Estimated blood loss was 100 mL The patient tolerated the procedure well. I attest to the content of the Intraoperative Record and any orders documented therein. Any exception s are noted below.
[2020-10-10] MEDS: IBUPROFEN 600 MG TAB PO PRN ×4 (01:32→17:05)
[2020-10-10 06:31] LABS: Hematocrit (blood only) 28.9 % (37-47); Hemoglobin 9.5 g/dL (12.0-16.0); Mean Corpuscular Hemoglobin 30.1 pg (25-34); Mean Corpuscular Hgb Conc 32.9 g/dL (32-36); Mean Corpuscular Volume 91.5 fL (80-100); Mean Platelet Volume 11.1 fL (7.4-10.4); Platelet Count 215 K/uL (130-400); RDW Coefficient of Variation 13.9 % (11.5-14.5); Red Blood Count 3.16 M/uL (4.2-5.4); White Blood Count 9.88 K/uL (4.8-10.8)
[2020-10-10] MEDS: DOCUSATE SODIUM 100 MG CAP PO SCH ×2 (08:20→21:21)
[2020-10-10] MEDS: PRENATAL VITAMIN 1 TAB PO SCH (08:20)
[2020-10-10] MEDS: LABETALOL HCL 100 MG TAB PO SCH ×3 (08:21→21:21)
--- NOTE | 2020-10-10 09:51 | Obstetrical Progress Note ---
Date of Service October 10, 2020 Assessment & Plan Admission and Anticipated Discharge Date Admission Date: October 08, 2020 Physical Exam Physical Exam: abdomen soft and non tender no calf tenderness ambulating well vaginal bleeding scant hgb 9.5 blood pressure good on labetalol 100 mg tid Results & Data ([facility]) Vital Signs (Past 12 Hours) Vital Signs Temp Pulse Resp BP Pulse Ox 10/10/20 07:34 36.4 C L 69 18 131/91 98 10/10/20 04:40 36.5 C 71 18 136/83 10/09/20 23:50 36.5 C 87 18 119/83 99
[2020-10-10] MEDS ORDERED: bisacodyL 5 MG TABEC PO SCH (20:00)
[2020-10-11] MEDS: IBUPROFEN 600 MG TAB PO PRN (01:19)
[2020-10-11 06:27] LABS: Hematocrit (blood only) 29.5 % (37-47); Hemoglobin 9.9 g/dL (12.0-16.0)
[2020-10-11] MEDS: DOCUSATE SODIUM 100 MG CAP PO SCH (07:59)
[2020-10-11] MEDS: PRENATAL VITAMIN 1 TAB PO SCH (07:59)
[2020-10-11] MEDS: LABETALOL HCL 100 MG TAB PO SCH (07:59)
--- NOTE | 2020-10-11 09:19 | Obstetrical Progress Note ---
Date of Service October 11, 2020 Assessment & Plan Admission and Anticipated Discharge Date Admission Date: October 08, 2020 Physical Exam Physical Exam: abdomen soft and non tender no calf tenderness ambulating well blood pressure controlled on labetalol 100 mg tid vaginal bleeding scant hgb 9.9 Results & Data ([facility]) Vital Signs (Past 12 Hours) Vital Signs Temp Pulse Resp BP Pulse Ox 10/11/20 07:50 36.6 C 82 18 127/88 97 10/11/20 01:05 36.7 C 79 16 116/77 96
== END 2020-10-11 11:10 | disposition home or self-care (01) | DRG 807 ==
LOC: OPB 03:38 → 4S1 03:39 → 4S2 10-09 16:10